=== PATIENT | female | born 1975 | race African-American/Black ===

== ENCOUNTER 2016-05-28 09:05 | Emergency (ER) | payer OTHER ==
[2016-05-28] MEDS ORDERED: ASPIRIN 81 MG CHEW TABLET As Ordered ONE (09:45)
[2016-05-28 10:20] LABS: BASO % 0.3 % (0.0-1.0); EOS # 0.2 K/mm3 (0.0-0.50); EOS % 2.2 % (0.0-3.0); LARGE UNSTAINED CELL # 0.1 K/mm3 (0.0-0.4); LARGE UNSTAINED CELL % 1.4 % (0.0-4.0); LYMPH # 2.3 K/mm3 (1.5-4.5); LYMPH % 30.3 % (24.0-44.0); MEAN CORPUSCULAR HEMOGLOBIN 30.7 pg (27.0-33.0); MEAN CORPUSCULAR HGB CONC 33.7 g/dl (32.0-36.5); MEAN CORPUSCULAR VOLUME 91.3 fl (80.0-96.0); MONO # 0.5 K/mm3 (0.0-0.8); MONO % 7.1 % (0.0-5.0); NEUTROPHILS # 4.2 K/mm3 (1.8-7.7); NEUTROPHILS % 58.8 % (36.0-66.0); PLATELET COUNT, AUTOMATED 233 k/mm3 (150-450); RED CELL DISTRIBUTION WIDTH 12.4 % (11.5-14.5); WHITE BLOOD COUNT 7.2 K/mm3 (4.0-10.0)
[2016-05-28 10:21] LABS: ANION GAP 9 MEQ/L (8-16); BLOOD UREA NITROGEN 10 MG/DL (7-18); CALCIUM LEVEL 8.7 MG/DL (8.5-10.1); CARBON DIOXIDE LEVEL 27 MEQ/L (21-32); CHLORIDE LEVEL 105 MEQ/L (98-107); CREATININE FOR GFR 0.94 MG/DL (0.55-1.02); GLOMERULAR FILTRATION RATE > 60.0 (>58); GLUCOSE, FASTING 139 MG/DL (70-105); POTASSIUM SERUM 3.9 MEQ/L (3.5-5.1); SODIUM LEVEL 141 MEQ/L (136-145)
--- NOTE | 2016-05-28 10:40 | REP ---
CHEST: Two views. There is no evidence of acute infiltrate. No pleural effusion is seen. The heart is normal in size. The mediastinal silhouette is unremarkable. The visualized osseous structures are intact. IMPRESSION: No acute pulmonary disease. Signed by Will Summers MD 05/28/2016 04:55 P
[2016-05-28] MEDS ORDERED: ISOVUE-370 76% 100ML VIAL (Q9967) As Ordered ONE (10:48)
--- NOTE | 2016-05-28 11:22 | REP ---
Duplex extremity venous ultrasound: Bilateral lower extremity. History: Chest pain, deformity and swelling. Findings: The deep veins are anechoic and fully compressible from the groin to the popliteal fossa in the right and left lower extremity. Color flow imaging is homogeneous. Spectral Doppler interrogation demonstrates intact respiratory variation in flow and normal manual augmentation of flow. There is no evidence of deep vein thrombosis. Impression: Negative bilateral lower extremity duplex venous ultrasound. No evidence of deep vein thrombosis. Signed by Karl Hamilton MD 05/28/2016 11:13 A
--- NOTE | 2016-05-28 11:45 | REP ---
CT ANGIOGRAM OF THE CHEST: TECHNIQUE: Axial contrast enhanced images from the thoracic inlet to the upper abdomen using 100 mL Isovue 370 intravenous contrast material with multiplanar reformations. The lungs are clear with no infiltrate or suspicious nodular opacities. Thoracic aorta is normal in caliber with no aneurysm or dissection. There is no evidence of pulmonary embolism. There is no evidence of adenopathy in the chest. There is no pleural or pericardial effusion. Heart is normal in size. There is a small hiatal hernia. There is a tiny cyst in the upper pole of the left kidney. The other visualized upper abdominal structures are unremarkable. IMPRESSION: No CT evidence of pulmonary embolism. Small hiatal hernia. Signed by Will Summers MD 05/28/2016 04:58 P
[2016-05-28] MEDS ORDERED: MORPHINE 4 MG/ML 1ML SYRINGE As Ordered ONE (13:00)
[2016-05-28] MEDS ORDERED: KETOROLAC 30 MG/ML VIAL (J1885) As Ordered ONE (16:14)
--- NOTE | 2016-05-28 17:54 | EDDOCDS ---
Nurse's Notes [facility] Name: Maria Esther Jimenez Age: 40 yrs Sex: Female : 1975 Arrival Date: 05/28/2016 Time: 09:05 Bed 9 Private MD: Saskia Fay, [facility] Diagnosis: Chest pain, unspecified Presentation: 05/28 09:13 Presenting complaint:. Red Flag criteria, patient assessed and taken directly to a bed. [facility] 09:16 Presenting complaint: Patient states: chest pain on and off x 1 week worse last night, kpj SOB sweaty and nauseated with chest pain today. tingling left neck and left arm. Aspirin was not taken prior to arrival. Adult Sepsis Screening: The patient does not have new or worsening altered mentation. Patient's respiratory rate is less than 22. Systolic blood pressure is greater than 100. Patient has a qSOFA score of 0- Negative Sepsis Screen. Suicide/Homicide risk assessment- the patient denies having any suicidal and/or homicidal ideations and does not present with any other emotional, behavioral or mental health complaints. Status: The patient is a dependent. Transition of care: patient was not received from another setting of care. 09:16 Acuity: CORRINE Level 2 [facility] 09:16 Method Of Arrival: Walkin/Carried/Asstd [facility] Triage Assessment: 09:20 General: Appears uncomfortable, Behavior is anxious. Pain: Location: mid-sternal area [facility] Pain currently is 10 out of 10 on a pain scale. Pain radiates to left arm. Pt Declines HIV testing. The patient is triaged at the bedside. See Assessment in Nurses Notes section of ED record. Cardiovascular: Chest pain is described as Pain is 10 out of 10 on a pain scale. quality is heaviness, stabbing, radiates to left arm(s) neck episodes are continuous began 1999 yesterday. BOAT CARPENTER: 09:20 LMP 05/15/2016 [facility] Historical: - Allergies: Aspirin (Rash); - Home Meds: 1. Synthroid 112 mcg Oral tab 1 tab once daily (Last dose: 05/28/2016 07:30) 2. multivitamin Oral tab 1 tablet daily (Last dose: 05/27/2016) 3. mirena IUD - PMHx: Hypothyroidism; Heart Murmur; - PSHx: 2surgeries right knee; surgery left knee; - Social history: Smoking status: Patient states was never smoker of tobacco. No barriers to communication noted, The patient speaks fluent Samoan. - Family history: Not pertinent. - : The pt / caregiver states he / she is not on anticoagulants. Home medication list is obtained from the patient. - Exposure Risk Screening:: None identified. Screenin:52 Screening information is obtained from the patient. Fall risk: No risks identified. jmk Assistance ADL's: requires no assistance with activities of daily living. Abuse/DV Screen: The patient / caregiver reports he/she is: not in a situation that causes fear, pain or injury. Nutritional screening: No deficits noted. Advance Directives: Currently, there is no health care proxy. home support is adequate. Assessment: 09:52 General: Appears in no apparent distress, comfortable, Behavior is cooperative. Pain: jmk Location: anterior aspect of left upper chest, mid-sternal area and left breast Pain currently is 6 out of 10 on a pain scale. Cardiovascular: Rhythm is sinus rhythm Chest pain is described as diffuse, quality is burning, is located in left anterior chest wall episodes last > 5 minutes. Respiratory: Airway is patent Respiratory effort is even, unlabored, Breath sounds are clear bilaterally. Derm: Skin is pink, warm & dry. 11:28 General: Appears in no apparent distress, comfortable, Behavior is cooperative. Pain: bcj Location: left breast and chest Pain currently is 5 out of 10 on a pain scale. Cardiovascular: Rhythm is sinus rhythm. Derm: Skin is pink, warm & dry. 14:25 General: Appears in no apparent distress, comfortable, Behavior is cooperative. Pain: bcj Denies pain. Cardiovascular: Rhythm is sinus rhythm. Derm: Skin is pink, warm & dry. 15:44 General: Appears in no apparent distress, comfortable, Behavior is cooperative. Pain: bcj Denies pain. Cardiovascular: Rhythm is sinus rhythm. Derm: Skin is pink, warm & dry. 17:51 General: Appears in no apparent distress, comfortable, Behavior is cooperative. Pain: bcj Location: chest Pain currently is 3 out of 10 on a pain scale. Cardiovascular: Rhythm is sinus rhythm Chest pain is described as mild. Derm: Skin is pink, warm & dry. Vital Signs: 09:10 BP 172 / 87; Pulse 121; Resp 20; Temp 98.4(O); Pulse Ox 98% on R/A; Weight 125.65 kg nb2 (R); Height 5 ft. 5 in. (165.10 cm) (R); Pain 10/10; 09:15 BP 150 / 92 (auto/); bcj 09:17 Pulse 104 MON; Pulse Ox 99% ; bcj 09:30 BP 152 / 94 (auto/); bcj 09:30 Pulse 100 MON; Pulse Ox 86% ; bcj 09:45 BP 155 / 94 (auto/); bcj 09:45 Pulse 96 MON; bcj 10:00 BP 157 / 84 (auto/); bcj 10:00 Pulse 88 MON; Pulse Ox 99% ; bcj 10:15 BP 152 / 77 (auto/); bcj 10:15 Pulse 112 MON; Pulse Ox 97% ; bcj 10:30 BP 134 / 74 (auto/); bcj 10:30 Pulse 100 MON; Pulse Ox 98% ; bcj 10:34 BP 133 / 69 (auto/); bcj 10:34 Pulse 96 MON; Pulse Ox 97% ; bcj 10:36 BP 133 / 69; Pulse 93; Pain 8/10; bcj 10:42 BP 124 / 72 (auto/); bcj 10:42 Pulse 96 MON; Pulse Ox 97% ; bcj 10:44 BP 124 / 74; Pulse 98; Resp 16; Pulse Ox 98% on R/A; Pain 5/10; bcj 10:45 BP 123 / 73 (auto/); bcj 10:45 Pulse 92 MON; Pulse Ox 98% ; bcj 11:00 BP 129 / 74 (auto/); bcj 11:03 Pulse 90 MON; bcj 11:15 BP 134 / 71 (auto/); bcj 11:15 Pulse 84 MON; Pulse Ox 99% ; bcj 11:29 BP 124 / 67; Pulse 87; Pain 5/10; bcj 11:30 BP 129 / 67 (auto/); bcj 11:30 Pulse 78 MON; Pulse Ox 100% ; bcj 12:06 BP 139 / 78 (auto/); bcj 12:07 Pulse 84 MON; bcj 12:57 BP 139 / 73 (auto/); bcj 12:57 Pulse 84 MON; Pulse Ox 98% ; bcj 13:57 BP 125 / 69 (auto/); [facility] 13:57 Pulse 96 MON; Pulse Ox 98% ; [facility] 17:51 BP 125 / 78; Pulse 98; Resp 16; Temp 98; Pulse Ox 96% on R/A; Pain 3/10; j 09:10 Body Mass Index 46.09 (125.65 kg, 165.10 cm) [facility] Vitals: 09:10 Log In Time: May 28, 2016 at 09:05. RN notified that patient meets Red Flag 2 criteria. 14:25 Refer to monitor trend for complete vital signs trends. [facility] ED Course: 09:08 Patient visited by Anamika Kim. nb2 09:08 Patient moved to Waiting nb2 09:11 Patient visited by Anamika Kim. nb2 09:11 Patient moved to 9 nb2 09:13 [facility] is Private Physician. nb2 09:17 No apparent distress. Resting quietly. awaiting re-evaluation by ER physician. [facility] 09:17 IV is intact. [facility] 09:18 Triage Initiated [facility] 09:21 Bhaskar Perales MD is Attending Physician. br1 09:31 EKG done. (by ED staff). Reviewed by Bhaskar Perales MD. rn1 09:35 Patient visited by Bhaskar Perales MD. br1 09:51 Basic Metabolic Profile Sent. jmk 09:51 CBC with Diff Sent. jmk 09:51 Cardiac Injury Profile Sent. jmk 09:52 No apparent distress. Resting quietly. awaiting re-evaluation by ER physician. jmk 09:52 The patient / caregiver is instructed regarding the plan of care and ED course. Patient is[place] has correct armband on for positive identification. Placed in gown. Bed in low position. Call light in reach. Side rails up X2. Adult w/ patient. industrial hygiene engineer on. Pulse ox on. NIBP on. 09:52 Troponin Sent. jmk 09:52 Inserted saline lock: 20 gauge in right antecubital area. Labs drawn. (by ED staff). breanak Sent per order to lab. 09:54 Patient visited by Peterson Brunson RN. jmk 11:04 Chest, 2 View (pa\E\lat) Returned. EDMS 11:07 [facility] [place] was scanned into [employer] and attached to record. lg 11:30 Patient visited by Fredi Latham RN. bcj 11:35 Ultrasound Bilateral LE R/O DVT Returned. EDMS 12:07 CT Chest Angio R/O PE Returned. EDMS 12:08 Patient visited by Fredi Latham RN. bcj 12:54 Patient visited by Bhaskar Perales MD. br1 14:27 Patient visited by Fredi Latham RN. bcj 15:44 No apparent distress. Resting quietly. awaiting re-evaluation by ER physician. bcj 15:44 IV is intact. bcj 15:46 Patient visited by Fredi Latham RN. bcj 16:13 Patient visited by Bhaskar Perales MD. br1 17:05 Chest, 2 View (pa\E\lat) Returned. EDMS 17:06 CT Chest Angio R/O PE Returned. EDMS 17:07 Patient visited by Bhaskar Perales MD. br1 17:17 [facility]. br1 17:17 Tin Bello is Referral Physician. br1 17:51 No apparent distress. Resting quietly. Awaiting disposition. bcj 17:51 Discontinued lock intact. No procedures done that require assistance. bcj 17:53 Patient visited by Fredi Latham RN. bcj Administered Medications: 09:48 Drug: Aspirin 324 mg [aspirin 81 mg chewable tablet (4 tabs)] Route: PO; srm 10:26 Drug: Nitrostat 0.4 mg [Nitrostat 0.4 mg sublingual tablet (1 tabs)] Route: Sublingual; bcj 10:36 Drug: Nitrostat 0.4 mg [Nitrostat 0.4 mg sublingual tablet (1 tabs)] Route: Sublingual; bcj 10:36 Follow up: BP 133 / 69; Pulse 93 bpm; Pain 8/10 Adult bcj 10:43 Drug: Nitrostat 0.4 mg [Nitrostat 0.4 mg sublingual tablet (1 tabs)] Route: Sublingual; bcj 10:44 Follow up: BP 124 / 74; Pulse 98 bpm; Resp 16 bpm; Pulse Ox 98% RA; Pain 5/10 Adult bcj 11:29 Follow up: BP 124 / 67; Pulse 87 bpm; Pain 5/10 Adult bcj 13:02 Drug: morphine 4 mg [morphine 4 mg/mL intravenous cartridge (1 mL)] Route: IVP; Site: bcj right antecubital; 14:27 Follow up: Response: Pain is decreased [facility] 16:25 Drug: ketorolac 30 mg [ketorolac 30 mg/mL (1 mL) injection solution (1 mL)] Route: IVP; [facility] Site: left antecubital; Order Results: Lab Order: Basic Metabolic Profile; SPEC'05/28/16 09:48 Test: GLUCOSE, FASTING; Value: 139; Range: 70-105; Abnormal: Above high normal; Units: MG/DL; Status: F Test: BLOOD UREA NITROGEN; Value: 10; Range: 7-18; Units: MG/DL; Status: F Test: CREATININE FOR GFR; Value: 0.94; Range: 0.55-1.02; Units: MG/DL; Status: F Test: GLOMERULAR FILTRATION RATE; Value: > 60.0; Range: >58; Status: F Test: SODIUM LEVEL; Value: 141; Range: 136-145; Units: MEQ/L; Status: F Test: POTASSIUM SERUM; Value: 3.9; Range: 3.5-5.1; Units: MEQ/L; Status: F Test: CHLORIDE LEVEL; Value: 105; Range: 98-107; Units: MEQ/L; Status: F Test: CARBON DIOXIDE LEVEL; Value: 27; Range: 21-32; Units: MEQ/L; Status: F Test: ANION GAP; Value: 9; Range: 8-16; Units: MEQ/L; Status: F Test: CALCIUM LEVEL; Value: 8.7; Range: 8.5-10.1; Units: MG/DL; Status: F Test Note: ; Units are mL/min/1.73 m2 Chronic Kidney Disease Staging per NKF: Stage I & II GFR >=60 Normal to Mildly Decreased Stage III GFR 30-59 Moderately Decreased Stage IV GFR 15-29 Severely Decreased Stage V GFR <15 Very Little GFR Left ESRD GFR <15 on TATTOO TECHNICIAN Lab Order: CBC with Diff; SPEC'05/28/16 09:48 Test: WHITE BLOOD COUNT; Value: 7.2; Range: 4.0-10.0; Units: K/mm3; Status: F Test: RED BLOOD COUNT; Value: 4.44; Range: 4.00-5.40; Units: M/mm3; Status: F Test: HEMOGLOBIN; Value: 13.6; Range: 12.0-16.0; Units: g/dl; Status: F Test: HEMATOCRIT; Value: 40.5; Range: 36.0-47.0; Units: %; Status: F Test: MEAN CORPUSCULAR VOLUME; Value: 91.3; Range: 80.0-96.0; Units: fl; Status: F Test: MEAN CORPUSCULAR HEMOGLOBIN; Value: 30.7; Range: 27.0-33.0; Units: pg; Status: F Test: MEAN CORPUSCULAR HGB CONC; Value: 33.7; Range: 32.0-36.5; Units: g/dl; Status: F Test: RED CELL DISTRIBUTION WIDTH; Value: 12.4; Range: 11.5-14.5; Units: %; Status: F Test: PLATELET COUNT, AUTOMATED; Value: 233; Range: 150-450; Units: k/mm3; Status: F Test: NEUTROPHILS %; Value: 58.8; Range: 36.0-66.0; Units: %; Status: F Test: LYMPH %; Value: 30.3; Range: 24.0-44.0; Units: %; Status: F Test: MONO %; Value: 7.1; Range: 0.0-5.0; Abnormal: Above high normal; Units: %; Status: F Test: EOS %; Value: 2.2; Range: 0.0-3.0; Units: %; Status: F Test: BASO %; Value: 0.3; Range: 0.0-1.0; Units: %; Status: F Test: LARGE UNSTAINED CELL %; Value: 1.4; Range: 0.0-4.0; Units: %; Status: F Test: NEUTROPHILS #; Value: 4.2; Range: 1.8-7.7; Units: K/mm3; Status: F Test: LYMPH #; Value: 2.3; Range: 1.5-4.5; Units: K/mm3; Status: F Test: MONO #; Value: 0.5; Range: 0.0-0.8; Units: K/mm3; Status: F Test: EOS #; Value: 0.2; Range: 0.0-0.50; Units: K/mm3; Status: F Test: BASO #; Value: 0.0; Range: 0.0-0.2; Units: K/mm3; Status: F Test: LARGE UNSTAINED CELL #; Value: 0.1; Range: 0.0-0.4; Units: K/mm3; Status: F Lab Order: Cardiac Injury Profile; [facility] 05/28/16 09:48 Test: CPK CREATINE PHOSPHOKINASE; Value: 230; Range: 26-192; Abnormal: Above high normal; Units: U/L; Status: F Test: CK-MB VALUE MASS; Value: 3.8; Range: 0.0-3.6; Abnormal: Above high normal; Units: NG/ML; Status: F Test: MB/CK RELATIVE INDEX; Value: 1.65; Range: < OR =4; Status: F Test Note: ; DIAGNOSIS CRITERIA MMB ng/ml Relative Index (RI) NON-AMI < or = 5 N/A [place]MERS [place]ONE > 5 < or = 4 AMI > 5 > 4 Lab Order: Troponin; [facility] 05/28/16 09:48 Test: TROPONIN I; Value: < 0.02; Range: < 0.10; Units: NG/ML; Status: F Test Note: ; Troponin I Reference Interval for [employer] LOCI: 99th Percentile= 0.00-0.045 ng/ml Risk Stratification: <= 0.10 ng/ml Decreased Risk for Adverse Clinical Events. 0.10-1.50 ng/ml Increased Risk for Adverse Clinical Events. Evaluation of additional criterion and/or repeat testing in 2-6 hours is suggested to rule out myocardial damage. >= 1.50 ng/ml Indicative of Myocardial Injury. Lab Order: CARDIAC MARKER PANEL; [facility] 05/28/16 15:16 Test: CPK CREATINE PHOSPHOKINASE; Value: 188; Range: 26-192; Units: U/L; Status: F Test: CK-MB VALUE MASS; Value: 3.2; Range: 0.0-3.6; Units: NG/ML; Status: F Test: MB/CK RELATIVE INDEX; Value: 1.70; Range: < OR =4; Status: F Test: TROPONIN I; Value: < 0.02; Range: < 0.10; Units: NG/ML; Status: F Test Note: ; DIAGNOSIS CRITERIA MMB ng/ml Relative Index (RI) NON-AMI < or = 5 N/A SUMMERS ZONE > 5 < or = 4 AMI > 5 > 4 Radiology Order: Chest, 2 View (pa\E\lat) Test: Chest, 2 View (pa\E\lat) REASON FOR EXAMINATION: Chest Pain; CHEST:; ; Two views.; ; There is no evidence of acute infiltrate.; ; No pleural effusion is seen.; ; The heart is normal in size.; ; The mediastinal silhouette is unremarkable.; ; The visualized osseous structures are intact.; ; IMPRESSION:; ; No acute pulmonary disease.; ; ; Signed by; Will Summers MD 05/28/2016 04:55 P; Radiology Order: Ultrasound Bilateral LE R/O DVT Test: Ultrasound Bilateral LE R/O DVT REASON FOR EXAMINATION: Deformity/Swelling; Duplex extremity venous ultrasound: Bilateral lower extremity.; ; History: Chest pain, deformity and swelling.; ; Findings: The deep veins are anechoic and fully compressible from the groin to; the popliteal fossa in the right and left lower extremity. Color flow imaging is; homogeneous. Spectral Doppler interrogation demonstrates intact respiratory; variation in flow and normal manual augmentation of flow. There is no evidence; of deep vein thrombosis.; ; Impression:; ; Negative bilateral lower extremity duplex venous ultrasound. No evidence of deep; vein thrombosis.; ; ; Signed by; Karl Hamilton MD 05/28/2016 11:13 A; Radiology Order: CT Chest Angio R/O PE Test: CT Chest Angio R/O PE REASON FOR EXAMINATION: Chest Pain; CT ANGIOGRAM OF THE CHEST:; ; TECHNIQUE: Axial contrast enhanced images from the thoracic inlet to the upper; abdomen using 100 mL Isovue 370 intravenous contrast material with multiplanar; reformations.; ; The lungs are clear with no infiltrate or suspicious nodular opacities. Thoracic; aorta is normal in caliber with no aneurysm or dissection. There is no evidence; of pulmonary embolism. There is no evidence of adenopathy in the chest. There; is no pleural or pericardial effusion. Heart is normal in size. There is a; small hiatal hernia. There is a tiny cyst in the upper pole of the left kidney.; The other visualized upper abdominal structures are unremarkable.; ; IMPRESSION:; ; No CT evidence of pulmonary embolism. Small hiatal hernia.; ; ; Signed by; Will Summers MD 05/28/2016 04:58 P; Outcome: 17:17 Discharge ordered by Provider. br1 17:51 Discharge Assessment: patient administered narcotics - yes. Pt provided with safe j discharge. The following High Risk Discharge criteria are identified: None. Discharged to home ambulatory, with family. Condition: stable. Discharge instructions given to patient, Instructed on discharge instructions, follow up and referral plans. medication usage, Prescriptions given X 1. CT Study completed. Property :Personal belongings accompany Pt. 17:54 Patient left the ED. [facility] Signatures: Dispatcher [employer] EDMS Ayla Franco RN RN Fredi Abrams RN RN Peterson CastroRN RN Misa Gore, RN RN Lata Arzate Reg Reg lg Roggie, Brian, MD MD br1 Vikram Cheung rn1 Anamika Kim2 Corrections: (The following items were deleted from the chart) 09:18 09:13 Red Flag criteria, patient assessed and taken directly to a bed. [facility] kp MTDChuck
--- NOTE | 2016-05-28 17:54 | EDDOCDS ---
Physician Documentation [facility] Name: Maria Esther Jimenez Age: 40 yrs Sex: Female : 1975 Arrival Date: 05/28/2016 Time: 09:05 Bed 9 Private MD: Family Aric Bray Disposition: 05/28/16 17:17 Discharged to Home/Self Care. Impression: Chest pain, unspecified. - Condition is Stable. - Discharge Instructions: Nonspecific Chest Pain, Chest Wall Pain. - Medication Reconciliation, Local Pharmacy Hours form. - Follow up: Family Aric Bray; When: 1 - 2 days; Reason: Recheck today's complaints. Follow up: Tin Bello; When: 4 - 5 days; Reason: Recheck today's complaints. - Problem is new. - Symptoms have improved. - Notes: You were seen in the ED for chest pain. Bloodwork along with EKG of the heart, chest Xray, CT scan of the chest and cardiac monitoring showed no acute findings. It is possible the pain is related to the wall of the chest itself. We have discussed the case with Dr. Bello of Cardiology as well who has recommended you may return home to follow up with Cardiology as well as your primary doctor for further evaluation. Please call today to make these two appointments. You may trial Ibuprofen every 6 hours as needed for pain with food as well. Return to the ED for any return or worsening of pain, trouble breathing, lightheadedness, loss of consciousness or any other concerns. Historical: - Allergies: Aspirin (Rash); - Home Meds: 1. Synthroid 112 mcg Oral tab 1 tab once daily (Last dose: 05/28/2016 07:30) 2. multivitamin Oral tab 1 tablet daily (Last dose: 05/27/2016) 3. mirena IUD - PMHx: Hypothyroidism; Heart Murmur; - PSHx: 2surgeries right knee; surgery left knee; - Social history: Smoking status: Patient states was never smoker of tobacco. No barriers to communication noted, The patient speaks fluent Lithuanian. - Family history: Not pertinent. - : The pt / caregiver states he / she is not on anticoagulants. Home medication list is obtained from the patient. - Exposure Risk Screening:: None identified. 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 5 in. (165.10 cm) (R); Pain 10/10; 09:15 BP 150 / 92 (auto/); bcj 09:17 Pulse 104 MON; Pulse Ox 99% ; bcj 09:30 BP 152 / 94 (auto/); bcj 09:30 Pulse 100 MON; Pulse Ox 86% ; bcj 09:45 BP 155 / 94 (auto/); bcj 09:45 Pulse 96 MON; bcj 10:00 BP 157 / 84 (auto/); bcj 10:00 Pulse 88 MON; Pulse Ox 99% ; bcj 10:15 BP 152 / 77 (auto/); bcj 10:15 Pulse 112 MON; Pulse Ox 97% ; bcj 10:30 BP 134 / 74 (auto/); bcj 10:30 Pulse 100 MON; Pulse Ox 98% ; bcj 10:34 BP 133 / 69 (auto/); bcj 10:34 Pulse 96 MON; Pulse Ox 97% ; bcj 10:36 BP 133 / 69; Pulse 93; Pain 8/10; bcj 10:42 BP 124 / 72 (auto/); bcj 10:42 Pulse 96 MON; Pulse Ox 97% ; bcj 10:44 BP 124 / 74; Pulse 98; Resp 16; Pulse Ox 98% on R/A; Pain 5/10; bcj 10:45 BP 123 / 73 (auto/); bcj 10:45 Pulse 92 MON; Pulse Ox 98% ; bcj 11:00 BP 129 / 74 (auto/); bcj 11:03 Pulse 90 MON; bcj 11:15 BP 134 / 71 (auto/); bcj 11:15 Pulse 84 MON; Pulse Ox 99% ; bcj 11:29 BP 124 / 67; Pulse 87; Pain 5/10; bcj 11:30 BP 129 / 67 (auto/); bcj 11:30 Pulse 78 MON; Pulse Ox 100% ; bcj 12:06 BP 139 / 78 (auto/); bcj 12:07 Pulse 84 MON; bcj 12:57 BP 139 / 73 (auto/); bcj 12:57 Pulse 84 MON; Pulse Ox 98% ; bcj 13:57 BP 125 / 69 (auto/); bcj 13:57 Pulse 96 MON; Pulse Ox 98% ; bcj 17:51 BP 125 / 78; Pulse 98; Resp 16; Temp 98; Pulse Ox 96% on R/A; Pain 3/10; bcj 09:10 Body Mass Index 46.09 (125.65 kg, 165.10 cm) nb2 MDM: 09:13 ECG WITH READING ER PHYS+CARDIAG ordered. EDMS 09:36 Education General Manager/Pulse Ox/q 30 min VS ordered. br1 09:36 IV Saline Lock ordered. br1 09:36 Rhythm Strip to chart ordered. br1 09:36 Undress patient appropriately for examination ordered. br1 09:36 Nitrostat 0.4 mg Sublingual every 5 minutes; hold if SBP<90mmHg.Document Pain Score br1 Response to Each Dose x3 ordered. 09:36 Oxygen at 2L/min via NC ordered. br1 09:37 Chest, 2 View (pa\E\lat) Ordered. EDMS 09:37 Basic Metabolic Profile Ordered. EDMS 09:37 CBC with Diff Ordered. EDMS 09:37 Cardiac Injury Profile Ordered. EDMS 09:37 Troponin Ordered. EDMS 09:38 Ultrasound Bilateral LE R/O DVT Ordered. EDMS 09:38 Aspirin 324 mg PO once ordered. br1 10:38 Basic Metabolic Profile Reviewed. br1 10:38 CBC with Diff Reviewed. br1 10:38 Cardiac Injury Profile Reviewed. br1 10:38 Troponin Reviewed. br1 10:41 Financial registration complete. lg 10:41 CT Chest Angio R/O PE Ordered. EDMS 11:07 [place] [place] was scanned into [employer] and attached to record. lg 12:47 Chest, 2 View (pa\E\lat) Reviewed. br1 12:47 Ultrasound Bilateral LE R/O DVT Reviewed. br1 12:47 CT Chest Angio R/O PE Reviewed. br1 12:49 Repeat EKG (put time details section) ordered. br1 12:49 Redraw CIP &Troponin (put time in details section) ordered. br1 12:49 Admit to ED Observation status ordered. br1 12:53 Repeat EKG (put time details section) complete. deg 12:53 Redraw CIP &Troponin (put time in details section) complete. deg 12:54 ECG WITH READING ER PHYS ordered. EDMS 12:54 CARDIAC MARKER PANEL Ordered. EDMS 12:54 morphine 4 mg IVP once ordered. br1 13:00 REGULAR+DIET ordered. EDMS 13:05 Admit to ED Observation status complete. deg 16:00 CARDIAC MARKER PANEL Reviewed. br1 16:12 ketorolac 30 mg IVP once ordered. br1 Administered Medications: 09:48 Drug: Aspirin 324 mg [aspirin 81 mg chewable tablet (4 tabs)] Route: PO; srm 10:26 Drug: Nitrostat 0.4 mg [Nitrostat 0.4 mg sublingual tablet (1 tabs)] Route: Sublingual; bcj 10:36 Drug: Nitrostat 0.4 mg [Nitrostat 0.4 mg sublingual tablet (1 tabs)] Route: Sublingual; bcj 10:36 Follow up: BP 133 / 69; Pulse 93 bpm; Pain 8/10 Adult bcj 10:43 Drug: Nitrostat 0.4 mg [Nitrostat 0.4 mg sublingual tablet (1 tabs)] Route: Sublingual; bcj 10:44 Follow up: BP 124 / 74; Pulse 98 bpm; Resp 16 bpm; Pulse Ox 98% RA; Pain 5/10 Adult bcj 11:29 Follow up: BP 124 / 67; Pulse 87 bpm; Pain 5/10 Adult bcj 13:02 Drug: morphine 4 mg [morphine 4 mg/mL intravenous cartridge (1 mL)] Route: IVP; Site: bcj right antecubital; 14:27 Follow up: Response: Pain is decreased bcj 16:25 Drug: ketorolac 30 mg [ketorolac 30 mg/mL (1 mL) injection solution (1 mL)] Route: IVP; j Site: left antecubital; Signatures: Dispatcher [employer] Gabrielle Alva, Franchise Development Manager Unit deg Ayla Franco RN RN kpj Johnson, Bruce, RN RN bcj Knapp, Jean,RN RN Lata Krishnamurthy, Mina Reg Bhaskar Crews MD MD br1 Misa Smith RN srm The chart was reviewed and I authenticate all verbal orders and agree with the evaluation and treatment provided.Attachments: 11:07 [place] [place] Agreement lg MTDD
--- NOTE | 2016-05-30 09:38 | ECGEPIP ---
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
--- NOTE | 2016-05-30 09:56 | ECGEPIP ---
Stationary ECG Study [facility] - ED Test Date: 2016-05-28 Pat Name: JACKELYN IBANEZ Department: Room: - Gender: F Educational Aid: rn : 1975 Requested By: MANDEEP Carlos Order Number: [id number] Reading MD: Tutu Farley Measurements Intervals [place] Rate: 91 P: 59 [place]: 158 QRS: 59 QRSD: 83 T: 16 QT: 359 QTc: 443 Interpretive Statements SINUS RHYTHM Electronically Signed On 05-30-2016 9:56:08 EST by Tutu Farley
--- NOTE | 2016-05-30 18:54 | EDDOCDS ---
Physician Documentation [facility] Name: Maria Esther Jimenez Age: 40 yrs Sex: Female : 1975 Arrival Date: 05/28/2016 Time: 09:05 Bed 9 Private MD: Family Aric Bray Disposition: 05/28/16 17:17 Discharged to Home/Self Care. Impression: Chest pain, unspecified. - Condition is Stable. - Discharge Instructions: Nonspecific Chest Pain, Chest Wall Pain. - Medication Reconciliation, Local Pharmacy Hours form. - Follow up: Family Aric Bray; When: 1 - 2 days; Reason: Recheck today's complaints. Follow up: Tin Bello; When: 4 - 5 days; Reason: Recheck today's complaints. - Problem is new. - Symptoms have improved. - Notes: You were seen in the ED for chest pain. Bloodwork along with EKG of the heart, chest Xray, CT scan of the chest and cardiac monitoring showed no acute findings. It is possible the pain is related to the wall of the chest itself. We have discussed the case with Dr. Bello of Cardiology as well who has recommended you may return home to follow up with Cardiology as well as your primary doctor for further evaluation. Please call today to make these two appointments. You may trial Ibuprofen every 6 hours as needed for pain with food as well. Return to the ED for any return or worsening of pain, trouble breathing, lightheadedness, loss of consciousness or any other concerns. Historical: - Allergies: Aspirin (Rash); - Home Meds: 1. Synthroid 112 mcg Oral tab 1 tab once daily (Last dose: 05/28/2016 07:30) 2. multivitamin Oral tab 1 tablet daily (Last dose: 05/27/2016) 3. mirena IUD - PMHx: Hypothyroidism; Heart Murmur; - PSHx: 2surgeries right knee; surgery left knee; - Social history: Smoking status: Patient states was never smoker of tobacco. No barriers to communication noted, The patient speaks fluent Turkish. - Family history: Not pertinent. - : The pt / caregiver states he / she is not on anticoagulants. Home medication list is obtained from the patient. - Exposure Risk Screening:: None identified. 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 5 in. (165.10 cm) (R); Pain 10/10; 09:15 BP 150 / 92 (auto/); bcj 09:17 Pulse 104 MON; Pulse Ox 99% ; bcj 09:30 BP 152 / 94 (auto/); bcj 09:30 Pulse 100 MON; Pulse Ox 86% ; bcj 09:45 BP 155 / 94 (auto/); bcj 09:45 Pulse 96 MON; bcj 10:00 BP 157 / 84 (auto/); bcj 10:00 Pulse 88 MON; Pulse Ox 99% ; bcj 10:15 BP 152 / 77 (auto/); bcj 10:15 Pulse 112 MON; Pulse Ox 97% ; bcj 10:30 BP 134 / 74 (auto/); bcj 10:30 Pulse 100 MON; Pulse Ox 98% ; bcj 10:34 BP 133 / 69 (auto/); bcj 10:34 Pulse 96 MON; Pulse Ox 97% ; bcj 10:36 BP 133 / 69; Pulse 93; Pain 8/10; bcj 10:42 BP 124 / 72 (auto/); bcj 10:42 Pulse 96 MON; Pulse Ox 97% ; bcj 10:44 BP 124 / 74; Pulse 98; Resp 16; Pulse Ox 98% on R/A; Pain 5/10; bcj 10:45 BP 123 / 73 (auto/); bcj 10:45 Pulse 92 MON; Pulse Ox 98% ; bcj 11:00 BP 129 / 74 (auto/); bcj 11:03 Pulse 90 MON; bcj 11:15 BP 134 / 71 (auto/); bcj 11:15 Pulse 84 MON; Pulse Ox 99% ; bcj 11:29 BP 124 / 67; Pulse 87; Pain 5/10; bcj 11:30 BP 129 / 67 (auto/); bcj 11:30 Pulse 78 MON; Pulse Ox 100% ; bcj 12:06 BP 139 / 78 (auto/); bcj 12:07 Pulse 84 MON; bcj 12:57 BP 139 / 73 (auto/); bcj 12:57 Pulse 84 MON; Pulse Ox 98% ; bcj 13:57 BP 125 / 69 (auto/); bcj 13:57 Pulse 96 MON; Pulse Ox 98% ; bcj 17:51 BP 125 / 78; Pulse 98; Resp 16; Temp 98; Pulse Ox 96% on R/A; Pain 3/10; bcj 09:10 Body Mass Index 46.09 (125.65 kg, 165.10 cm) nb2 MDM: 09:13 ECG WITH READING ER PHYS+CARDIAG ordered. EDMS 09:36 Data Entry Associate/Pulse Ox/q 30 min VS ordered. br1 09:36 IV Saline Lock ordered. br1 09:36 Rhythm Strip to chart ordered. br1 09:36 Undress patient appropriately for examination ordered. br1 09:36 Nitrostat 0.4 mg Sublingual every 5 minutes; hold if SBP<90mmHg.Document Pain Score br1 Response to Each Dose x3 ordered. 09:36 Oxygen at 2L/min via NC ordered. br1 09:37 Chest, 2 View (pa\E\lat) Ordered. EDMS 09:37 Basic Metabolic Profile Ordered. EDMS 09:37 CBC with Diff Ordered. EDMS 09:37 Cardiac Injury Profile Ordered. EDMS 09:37 Troponin Ordered. EDMS 09:38 Ultrasound Bilateral LE R/O DVT Ordered. EDMS 09:38 Aspirin 324 mg PO once ordered. br1 10:38 Basic Metabolic Profile Reviewed. br1 10:38 CBC with Diff Reviewed. br1 10:38 Cardiac Injury Profile Reviewed. br1 10:38 Troponin Reviewed. br1 10:41 Financial registration complete. lg 10:41 CT Chest Angio R/O PE Ordered. EDMS 11:07 [place] [place] Payment Agreement was scanned into [employer] and attached to record. lg 12:47 Chest, 2 View (pa\E\lat) Reviewed. br1 12:47 Ultrasound Bilateral LE R/O DVT Reviewed. br1 12:47 CT Chest Angio R/O PE Reviewed. br1 12:49 Repeat EKG (put time details section) ordered. br1 12:49 Redraw CIP &Troponin (put time in details section) ordered. br1 12:49 Admit to ED Observation status ordered. br1 12:53 Repeat EKG (put time details section) complete. deg 12:53 Redraw CIP &Troponin (put time in details section) complete. deg 12:54 ECG WITH READING ER PHYS ordered. EDMS 12:54 CARDIAC MARKER PANEL Ordered. EDMS 12:54 morphine 4 mg IVP once ordered. br1 13:00 REGULAR+DIET ordered. EDMS 13:05 Admit to ED Observation status complete. deg 16:00 CARDIAC MARKER PANEL Reviewed. br1 16:12 ketorolac 30 mg IVP once ordered. br1 Administered Medications: 09:48 Drug: Aspirin 324 mg [aspirin 81 mg chewable tablet (4 tabs)] Route: PO; srm 10:26 Drug: Nitrostat 0.4 mg [Nitrostat 0.4 mg sublingual tablet (1 tabs)] Route: Sublingual; bcj 10:36 Drug: Nitrostat 0.4 mg [Nitrostat 0.4 mg sublingual tablet (1 tabs)] Route: Sublingual; bcj 10:36 Follow up: BP 133 / 69; Pulse 93 bpm; Pain 8/10 Adult bcj 10:43 Drug: Nitrostat 0.4 mg [Nitrostat 0.4 mg sublingual tablet (1 tabs)] Route: Sublingual; bcj 10:44 Follow up: BP 124 / 74; Pulse 98 bpm; Resp 16 bpm; Pulse Ox 98% RA; Pain 5/10 Adult bcj 11:29 Follow up: BP 124 / 67; Pulse 87 bpm; Pain 5/10 Adult bcj 13:02 Drug: morphine 4 mg [morphine 4 mg/mL intravenous cartridge (1 mL)] Route: IVP; Site: bcj right antecubital; 14:27 Follow up: Response: Pain is decreased bcj 16:25 Drug: ketorolac 30 mg [ketorolac 30 mg/mL (1 mL) injection solution (1 mL)] Route: IVP; j Site: left antecubital; Signatures: Dispatcher [employer] Gabrielle Alva, Clay Transporter Unit deg Ayla Franco RN RN kpj Johnson, Bruce, RN RN bcj Knapp, Jean,RN RN Lata Krishnamurthy, Mina Reg Bhaskar Crews MD MD br1 Misa Smith RN srm The chart was reviewed and I authenticate all verbal orders and agree with the evaluation and treatment provided.Attachments: 11:07 [facility] [place] Payment Agreement lg Chart Complete MTDD
--- NOTE | 2016-05-30 18:54 | EDDOCDS ---
Nurse's Notes [employer] Name: Maria Esther Jimenez Age: 40 yrs Sex: Female : 1975 Arrival Date: 05/28/2016 Time: 09:05 Bed 9 Private MD: Saskia Fay, [facility] Diagnosis: Chest pain, unspecified Presentation: 05/28 09:13 Presenting complaint:. Red Flag criteria, patient assessed and taken directly to a bed. [facility] 09:16 Presenting complaint: Patient states: chest pain on and off x 1 week worse last night, kpj SOB sweaty and nauseated with chest pain today. tingling left neck and left arm. Aspirin was not taken prior to arrival. Adult Sepsis Screening: The patient does not have new or worsening altered mentation. Patient's respiratory rate is less than 22. Systolic blood pressure is greater than 100. Patient has a qSOFA score of 0- Negative Sepsis Screen. Suicide/Homicide risk assessment- the patient denies having any suicidal and/or homicidal ideations and does not present with any other emotional, behavioral or mental health complaints. Status: The patient is a dependent. Transition of care: patient was not received from another setting of care. 09:16 Acuity: CORRINE Level 2 [facility] 09:16 Method Of Arrival: Walkin/Carried/Asstd [facility] Triage Assessment: 09:20 General: Appears uncomfortable, Behavior is anxious. Pain: Location: mid-sternal area [facility] Pain currently is 10 out of 10 on a pain scale. Pain radiates to left arm. Pt Declines HIV testing. The patient is triaged at the bedside. See Assessment in Nurses Notes section of ED record. Cardiovascular: Chest pain is described as Pain is 10 out of 10 on a pain scale. quality is heaviness, stabbing, radiates to left arm(s) neck episodes are continuous began 1999 yesterday. EXTRUSION FORMER: 09:20 LMP 05/15/2016 [facility] Historical: - Allergies: Aspirin (Rash); - Home Meds: 1. Synthroid 112 mcg Oral tab 1 tab once daily (Last dose: 05/28/2016 07:30) 2. multivitamin Oral tab 1 tablet daily (Last dose: 05/27/2016) 3. mirena IUD - PMHx: Hypothyroidism; Heart Murmur; - PSHx: 2surgeries right knee; surgery left knee; - Social history: Smoking status: Patient states was never smoker of tobacco. No barriers to communication noted, The patient speaks fluent [place]. - Family history: Not pertinent. - : The pt / caregiver states he / she is not on anticoagulants. Home medication list is obtained from the patient. - Exposure Risk Screening:: None identified. Screenin:52 Screening information is obtained from the patient. Fall risk: No risks identified. jmk Assistance ADL's: requires no assistance with activities of daily living. Abuse/DV Screen: The patient / caregiver reports he/she is: not in a situation that causes fear, pain or injury. Nutritional screening: No deficits noted. Advance Directives: Currently, there is no health care proxy. home support is adequate. Assessment: 09:52 General: Appears in no apparent distress, comfortable, Behavior is cooperative. Pain: jmk Location: anterior aspect of left upper chest, mid-sternal area and left breast Pain currently is 6 out of 10 on a pain scale. Cardiovascular: Rhythm is sinus rhythm Chest pain is described as diffuse, quality is burning, is located in left anterior chest wall episodes last > 5 minutes. Respiratory: Airway is patent Respiratory effort is even, unlabored, Breath sounds are clear bilaterally. Derm: Skin is pink, warm & dry. 11:28 General: Appears in no apparent distress, comfortable, Behavior is cooperative. Pain: bcj Location: left breast and chest Pain currently is 5 out of 10 on a pain scale. Cardiovascular: Rhythm is sinus rhythm. Derm: Skin is pink, warm & dry. 14:25 General: Appears in no apparent distress, comfortable, Behavior is cooperative. Pain: bcj Denies pain. Cardiovascular: Rhythm is sinus rhythm. Derm: Skin is pink, warm & dry. 15:44 General: Appears in no apparent distress, comfortable, Behavior is cooperative. Pain: bcj Denies pain. Cardiovascular: Rhythm is sinus rhythm. Derm: Skin is pink, warm & dry. 17:51 General: Appears in no apparent distress, comfortable, Behavior is cooperative. Pain: bcj Location: chest Pain currently is 3 out of 10 on a pain scale. Cardiovascular: Rhythm is sinus rhythm Chest pain is described as mild. Derm: Skin is pink, warm & dry. Vital Signs: 09:10 BP 172 / 87; Pulse 121; Resp 20; Temp 98.4(O); Pulse Ox 98% on R/A; Weight 125.65 kg nb2 (R); Height 5 ft. 5 in. (165.10 cm) (R); Pain 10/10; 09:15 BP 150 / 92 (auto/); bcj 09:17 Pulse 104 MON; Pulse Ox 99% ; bcj 09:30 BP 152 / 94 (auto/); bcj 09:30 Pulse 100 MON; Pulse Ox 86% ; bcj 09:45 BP 155 / 94 (auto/); bcj 09:45 Pulse 96 MON; bcj 10:00 BP 157 / 84 (auto/); bcj 10:00 Pulse 88 MON; Pulse Ox 99% ; bcj 10:15 BP 152 / 77 (auto/); bcj 10:15 Pulse 112 MON; Pulse Ox 97% ; bcj 10:30 BP 134 / 74 (auto/); bcj 10:30 Pulse 100 MON; Pulse Ox 98% ; bcj 10:34 BP 133 / 69 (auto/); bcj 10:34 Pulse 96 MON; Pulse Ox 97% ; bcj 10:36 BP 133 / 69; Pulse 93; Pain 8/10; bcj 10:42 BP 124 / 72 (auto/); bcj 10:42 Pulse 96 MON; Pulse Ox 97% ; bcj 10:44 BP 124 / 74; Pulse 98; Resp 16; Pulse Ox 98% on R/A; Pain 5/10; bcj 10:45 BP 123 / 73 (auto/); bcj 10:45 Pulse 92 MON; Pulse Ox 98% ; bcj 11:00 BP 129 / 74 (auto/); bcj 11:03 Pulse 90 MON; bcj 11:15 BP 134 / 71 (auto/); bcj 11:15 Pulse 84 MON; Pulse Ox 99% ; bcj 11:29 BP 124 / 67; Pulse 87; Pain 5/10; bcj 11:30 BP 129 / 67 (auto/); bcj 11:30 Pulse 78 MON; Pulse Ox 100% ; bcj 12:06 BP 139 / 78 (auto/); bcj 12:07 Pulse 84 MON; bcj 12:57 BP 139 / 73 (auto/); bcj 12:57 Pulse 84 MON; Pulse Ox 98% ; bcj 13:57 BP 125 / 69 (auto/); [facility] 13:57 Pulse 96 MON; Pulse Ox 98% ; [facility] 17:51 BP 125 / 78; Pulse 98; Resp 16; Temp 98; Pulse Ox 96% on R/A; Pain 3/10; j 09:10 Body Mass Index 46.09 (125.65 kg, 165.10 cm) [facility] Vitals: 09:10 Log In Time: May 28, 2016 at 09:05. RN notified that patient meets Red Flag 2 criteria. 14:25 Refer to monitor trend for complete vital signs trends. [facility] ED Course: 09:08 Patient visited by Anamika Kim. nb2 09:08 Patient moved to Waiting nb2 09:11 Patient visited by Anamika Kim. nb2 09:11 Patient moved to 9 nb2 09:13 [facility] is Private Physician. nb2 09:17 No apparent distress. Resting quietly. awaiting re-evaluation by ER physician. [facility] 09:[address] [facility] 09:18 Triage Initiated [facility] 09:21 Mandeep Perales MD is Attending Physician. br1 09:31 EKG done. (by ED staff). Reviewed by Mandeep Perales MD. rn1 09:35 Patient visited by Mandeep Perales MD. br1 09:51 Basic Metabolic Profile Sent. jmk 09:51 CBC with Diff Sent. jmk 09:51 Cardiac Injury Profile Sent. jmk 09:52 No apparent distress. Resting quietly. awaiting re-evaluation by ER physician. jmk 09:52 The patient / caregiver is instructed regarding the plan of care and ED course. Patient is[place] has correct armband on for positive identification. Placed in gown. Bed in low position. Call light in reach. Side rails up X2. Adult w/ patient. monitoring manager on. Pulse ox on. NIBP on. 09:52 Troponin Sent. jmk 09:52 Inserted saline lock: 20 gauge in right antecubital area. Labs drawn. (by ED staff). [place] Sent per order to lab. 09:54 Patient visited by Peterson Brunson RN. jmk 11:04 Chest, 2 View (pa\E\lat) Returned. EDMS 11:07 [facility] Payment Agreement was scanned into [employer] and attached to record. lg 11:30 Patient visited by Fredi Latham RN. bcj 11:35 Ultrasound Bilateral LE R/O DVT Returned. EDMS 12:07 CT Chest Angio R/O PE Returned. EDMS 12:08 Patient visited by Fredi Latham RN. bcj 12:54 Patient visited by Mandeep Perales MD. br1 14:27 Patient visited by Fredi Latham RN. bcj 15:44 No apparent distress. Resting quietly. awaiting re-evaluation by ER physician. bcj 15:44 IV is intact. bcj 15:46 Patient visited by Fredi Latham RN. bcj 16:13 Patient visited by Mandeep Perales MD. br1 17:05 Chest, 2 View (pa\E\lat) Returned. EDMS 17:06 CT Chest Angio R/O PE Returned. EDMS 17:07 Patient visited by Mandeep Perales MD. br1 17:17 [facility]. br1 17:17 Tin Bello is Referral Physician. br1 17:51 No apparent distress. Resting quietly. Awaiting disposition. bcj 17:51 Discontinued lock intact. No procedures done that require assistance. bcj 17:53 Patient visited by Fredi Latham RN. bcj 05/30 10:05 EKG-ADULT Returned. EDMS 10:05 ECG WITH READING ER PHYS Returned. EDMS Administered Medications: 05/28 09:48 Drug: Aspirin 324 mg [aspirin 81 mg chewable tablet (4 tabs)] Route: PO; srm 10:26 Drug: Nitrostat 0.4 mg [Nitrostat 0.4 mg sublingual tablet (1 tabs)] Route: Sublingual; bcj 10:36 Drug: Nitrostat 0.4 mg [Nitrostat 0.4 mg sublingual tablet (1 tabs)] Route: Sublingual; bcj 10:36 Follow up: BP 133 / 69; Pulse 93 bpm; Pain 8/10 Adult bcj 10:43 Drug: Nitrostat 0.4 mg [Nitrostat 0.4 mg sublingual tablet (1 tabs)] Route: Sublingual; bcj 10:44 Follow up: BP 124 / 74; Pulse 98 bpm; Resp 16 bpm; Pulse Ox 98% RA; Pain 5/10 Adult bcj 11:29 Follow up: BP 124 / 67; Pulse 87 bpm; Pain 5/[address] [facility] 13:02 Drug: morphine 4 mg [morphine 4 mg/mL intravenous cartridge (1 mL)] Route: IVP; Site: j right antecubital; 14:27 Follow up: Response: Pain is decreased [facility] 16:25 Drug: ketorolac 30 mg [ketorolac 30 mg/mL (1 mL) injection solution (1 mL)] Route: IVP; [facility] Site: left antecubital; Order Results: Lab Order: Basic Metabolic Profile; SPEC'M 05/28/16 09:48 Test: GLUCOSE, FASTING; Value: 139; Range: 70-105; Abnormal: Above high normal; Units: MG/DL; Status: F Test: BLOOD UREA NITROGEN; Value: 10; Range: 7-18; Units: MG/DL; Status: F Test: CREATININE FOR GFR; Value: 0.94; Range: 0.55-1.02; Units: MG/DL; Status: F Test: GLOMERULAR FILTRATION RATE; Value: > 60.0; Range: >58; Status: F Test: SODIUM LEVEL; Value: 141; Range: 136-145; Units: MEQ/L; Status: F Test: POTASSIUM SERUM; Value: 3.9; Range: 3.5-5.1; Units: MEQ/L; Status: F Test: CHLORIDE LEVEL; Value: 105; Range: 98-107; Units: MEQ/L; Status: F Test: CARBON DIOXIDE LEVEL; Value: 27; Range: 21-32; Units: MEQ/L; Status: F Test: ANION GAP; Value: 9; Range: 8-16; Units: MEQ/L; Status: F Test: CALCIUM LEVEL; Value: 8.7; Range: 8.5-10.1; Units: MG/DL; Status: F Test Note: ; Units are mL/min/1.73 m2 Chronic Kidney Disease Staging per NKF: Stage I & II GFR >=60 Normal to Mildly Decreased Stage III GFR 30-59 Moderately Decreased Stage IV GFR 15-29 Severely Decreased Stage V GFR <15 Very Little GFR Left ESRD GFR <15 on TEXTURE ARTIST Lab Order: CBC with Diff; SPEC'M 05/28/16 09:48 Test: WHITE BLOOD COUNT; Value: 7.2; Range: 4.0-10.0; Units: K/mm3; Status: F Test: RED BLOOD COUNT; Value: 4.44; Range: 4.00-5.40; Units: M/mm3; Status: F Test: HEMOGLOBIN; Value: 13.6; Range: 12.0-16.0; Units: g/dl; Status: F Test: HEMATOCRIT; Value: 40.5; Range: 36.0-47.0; Units: %; Status: F Test: MEAN CORPUSCULAR VOLUME; Value: 91.3; Range: 80.0-96.0; Units: fl; Status: F Test: MEAN CORPUSCULAR HEMOGLOBIN; Value: 30.7; Range: 27.0-33.0; Units: pg; Status: F Test: MEAN CORPUSCULAR HGB CONC; Value: 33.7; Range: 32.0-36.5; Units: g/dl; Status: F Test: RED CELL DISTRIBUTION WIDTH; Value: 12.4; Range: 11.5-14.5; Units: %; Status: F Test: PLATELET COUNT, AUTOMATED; Value: 233; Range: 150-450; Units: k/mm3; Status: F Test: NEUTROPHILS %; Value: 58.8; Range: 36.0-66.0; Units: %; Status: F Test: LYMPH %; Value: 30.3; Range: 24.0-44.0; Units: %; Status: F Test: MONO %; Value: 7.1; Range: 0.0-5.0; Abnormal: Above high normal; Units: %; Status: F Test: EOS %; Value: 2.2; Range: 0.0-3.0; Units: %; Status: F Test: BASO %; Value: 0.3; Range: 0.0-1.0; Units: %; Status: F Test: LARGE UNSTAINED CELL %; Value: 1.4; Range: 0.0-4.0; Units: %; Status: F Test: NEUTROPHILS #; Value: 4.2; Range: 1.8-7.7; Units: K/mm3; Status: F Test: LYMPH #; Value: 2.3; Range: 1.5-4.5; Units: K/mm3; Status: F Test: MONO #; Value: 0.5; Range: 0.0-0.8; Units: K/mm3; Status: F Test: EOS #; Value: 0.2; Range: 0.0-0.50; Units: K/mm3; Status: F Test: BASO #; Value: 0.0; Range: 0.0-0.2; Units: K/mm3; Status: F Test: LARGE UNSTAINED CELL #; Value: 0.1; Range: 0.0-0.4; Units: K/mm3; Status: F Lab Order: Cardiac Injury Profile; [facility] 05/28/16 09:48 Test: CPK CREATINE PHOSPHOKINASE; Value: 230; Range: 26-192; Abnormal: Above high normal; Units: U/L; Status: F Test: CK-MB VALUE MASS; Value: 3.8; Range: 0.0-3.6; Abnormal: Above high normal; Units: NG/ML; Status: F Test: MB/CK RELATIVE INDEX; Value: 1.65; Range: < OR =4; Status: F Test Note: ; DIAGNOSIS CRITERIA MMB ng/ml Relative Index (RI) NON-AMI < or = 5 N/A [place]ONE > 5 < or = 4 AMI > 5 > 4 Lab Order: Troponin; [facility] 05/28/16 09:48 Test: TROPONIN I; Value: < 0.02; Range: < 0.10; Units: NG/ML; Status: F Test Note: ; Troponin I Reference Interval for [place] LOCI: 99th Percentile= 0.00-0.045 ng/ml Risk Stratification: <= 0.10 ng/ml Decreased Risk for Adverse Clinical Events. 0.10-1.50 ng/ml Increased Risk for Adverse Clinical Events. Evaluation of additional criterion and/or repeat testing in 2-6 hours is suggested to rule out myocardial damage. >= 1.50 ng/ml Indicative of Myocardial Injury. Lab Order: CARDIAC MARKER PANEL; [facility] 05/28/16 15:16 Test: CPK CREATINE PHOSPHOKINASE; Value: 188; Range: 26-192; Units: U/L; Status: F Test: CK-MB VALUE MASS; Value: 3.2; Range: 0.0-3.6; Units: NG/ML; Status: F Test: MB/CK RELATIVE INDEX; Value: 1.70; Range: < OR =4; Status: F Test: TROPONIN I; Value: < 0.02; Range: < 0.10; Units: NG/ML; Status: F Test Note: ; DIAGNOSIS CRITERIA MMB ng/ml Relative Index (RI) NON-AMI < or = 5 N/A [place]ONE > 5 < or = 4 AMI > 5 > 4 Radiology Order: EKG-ADULT Test: EKG-ADULT REASON FOR EXAMINATION: Chest Pain; Stationary ECG Study; [facility] - ED; ; Test Date: 2016-05-28; Pat Name: MARIA ESTHER JIMENEZ Department:; Room: -; Gender: F 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 Collections Specialist: rn; : 1975 Requested By: MANDEEP Carlos; Order Number: [id number] Reading MD: Tutu Farley; Measurements; Intervals [place]; Rate: 102 P: 57; MN: 165 QRS: 42; QRSD: 83 T: 9; QT: 344; QTc: 448; Interpretive Statements; SINUS TACHYCARDIA; NONSPECIFIC T WAVE ABNIRMALITY; SIMILAR TO 04/03/15; Electronically Signed On 05-30-2016 9:38:28 EST by Tutu Farley; Radiology Order: Chest, 2 View (pa\E\lat) Test: Chest, 2 View (pa\E\lat) REASON FOR EXAMINATION: Chest Pain; CHEST:; ; Two views.; ; There is no evidence of acute infiltrate.; ; No pleural effusion is seen.; ; The heart is normal in size.; ; The mediastinal silhouette is unremarkable.; ; The visualized osseous structures are intact.; ; IMPRESSION:; ; No acute pulmonary disease.; ; ; Signed by; Will Summers MD 05/28/2016 04:55 P; Radiology Order: Ultrasound Bilateral LE R/O DVT Test: Ultrasound Bilateral LE R/O DVT REASON FOR EXAMINATION: Deformity/Swelling; Duplex extremity venous ultrasound: Bilateral lower extremity.; ; History: Chest pain, deformity and swelling.; ; Findings: The deep veins are anechoic and fully compressible from the groin to; the popliteal fossa in the right and left lower extremity. Color flow imaging is; homogeneous. Spectral Doppler interrogation demonstrates intact respiratory; variation in flow and normal manual augmentation of flow. There is no evidence; of deep vein thrombosis.; ; Impression:; ; Negative bilateral lower extremity duplex venous ultrasound. No evidence of deep; vein thrombosis.; ; ; Signed by; Karl Hamilton MD 05/28/2016 11:13 A; Radiology Order: CT Chest Angio R/O PE Test: CT Chest Angio R/O PE REASON FOR EXAMINATION: Chest Pain; CT ANGIOGRAM OF THE CHEST:; ; TECHNIQUE: Axial contrast enhanced images from the thoracic inlet to the upper; abdomen using 100 mL Isovue 370 intravenous contrast material with multiplanar; reformations.; ; The lungs are clear with no infiltrate or suspicious nodular opacities. Thoracic; aorta is normal in caliber with no aneurysm or dissection. There is no evidence; of pulmonary embolism. There is no evidence of adenopathy in the chest. There; is no pleural or pericardial effusion. Heart is normal in size. There is a; small hiatal hernia. There is a tiny cyst in the upper pole of the left kidney.; The other visualized upper abdominal structures are unremarkable.; ; IMPRESSION:; ; No CT evidence of pulmonary embolism. Small hiatal hernia.; ; ; Signed by; Will Summers MD 05/28/2016 04:58 P; Radiology Order: ECG WITH READING ER PHYS Test: ECG WITH READING ER PHYS REASON FOR EXAMINATION: CHEST PAIN; Stationary ECG Study; [facility] - ED; ; Test Date: 2016-05-28; Pat Name: MARIA ESTHER JIMENEZ Department:; Room: -; Gender: F Credit Collections Specialist: rn; : 1975 Requested By: MANDEEP Carlos; Order Number: [id number] Reading MD: Tutu Farley; Measurements; Intervals [place]; Rate: 91 P: 59; MN: 158 QRS: 59; QRSD: 83 T: 16; QT: 359; QTc: 443; Interpretive Statements; SINUS RHYTHM; ; Electronically Signed On 05-30-2016 9:56:08 EST by Tutu Farley; Outcome: 17:17 Discharge ordered by Provider. br1 17:51 Discharge Assessment: patient administered narcotics - yes. Pt provided with safe bcj discharge. The following High Risk Discharge criteria are identified: None. Discharged to home ambulatory, with family. Condition: stable. Discharge instructions given to patient, Instructed on discharge instructions, follow up and referral plans. medication usage, Prescriptions given X 1. CT Study completed. Property :Personal belongings accompany Pt. 17:[address] the [address] [facility] Signatures: Dispatcher [employer] EDAyla Molina RN RN Fredi Abrams, RN RN Peterson Castro,RN RN Misa Gore, RN RN Lata Arzate, Reg Reg lg Mandeep Perales MD MD br1 Vikram Cheung rn1 Anamika Kim2 Corrections: (The following items were deleted from the chart) 09:18 09:13 Red Flag criteria, patient assessed and taken directly to a bed. [facility] Chart Complete MTDD
--- NOTE | 2016-05-30 18:54 | EDDOCDS ---
Physician Documentation [facility] Name: Maria Esther Jimenez Age: 40 yrs Sex: Female : 1975 Arrival Date: 05/28/2016 Time: 09:05 Bed 9 Private MD: Family Aric Bray Disposition: 05/28/16 17:17 Discharged to Home/Self Care. Impression: Chest pain, unspecified. - Condition is Stable. - Discharge Instructions: Nonspecific Chest Pain, Chest Wall Pain. - Medication Reconciliation, Local Pharmacy Hours form. - Follow up: Family Aric Bray; When: 1 - 2 days; Reason: Recheck today's complaints. Follow up: Tin Bello; When: 4 - 5 days; Reason: Recheck today's complaints. - Problem is new. - Symptoms have improved. - Notes: You were seen in the ED for chest pain. Bloodwork along with EKG of the heart, chest Xray, CT scan of the chest and cardiac monitoring showed no acute findings. It is possible the pain is related to the wall of the chest itself. We have discussed the case with Dr. Bello of Cardiology as well who has recommended you may return home to follow up with Cardiology as well as your primary doctor for further evaluation. Please call today to make these two appointments. You may trial Ibuprofen every 6 hours as needed for pain with food as well. Return to the ED for any return or worsening of pain, trouble breathing, lightheadedness, loss of consciousness or any other concerns. Historical: - Allergies: Aspirin (Rash); - Home Meds: 1. Synthroid 112 mcg Oral tab 1 tab once daily (Last dose: 05/28/2016 07:30) 2. multivitamin Oral tab 1 tablet daily (Last dose: 05/27/2016) 3. mirena IUD - PMHx: Hypothyroidism; Heart Murmur; - PSHx: 2surgeries right knee; surgery left knee; - Social history: Smoking status: Patient states was never smoker of tobacco. No barriers to communication noted, The patient speaks fluent Luxembourg[place]. - Family history: Not pertinent. - : The pt / caregiver states he / she is not on anticoagulants. Home medication list is obtained from the patient. - Exposure Risk Screening:: None identified. ASSISTANT TO THE VICE PRESIDENT: 05/28 09:20 LMP 05/15/2016 [facility] Vital Signs: 09:10 BP 172 / 87; Pulse 121; Resp 20; Temp 98.4(O); Pulse Ox 98% on R/A; Weight 125.65 kg / nb2 277.01 lbs (R); Height 5 ft. 5 in. (165.10 cm) (R); Pain 10/10; 09:15 BP 150 / 92 (auto/); bcj 09:17 Pulse 104 MON; Pulse Ox 99% ; bcj 09:30 BP 152 / 94 (auto/); bcj 09:30 Pulse 100 MON; Pulse Ox 86% ; bcj 09:45 BP 155 / 94 (auto/); bcj 09:45 Pulse 96 MON; bcj 10:00 BP 157 / 84 (auto/); bcj 10:00 Pulse 88 MON; Pulse Ox 99% ; bcj 10:15 BP 152 / 77 (auto/); bcj 10:15 Pulse 112 MON; Pulse Ox 97% ; bcj 10:30 BP 134 / 74 (auto/); bcj 10:30 Pulse 100 MON; Pulse Ox 98% ; bcj 10:34 BP 133 / 69 (auto/); bcj 10:34 Pulse 96 MON; Pulse Ox 97% ; bcj 10:36 BP 133 / 69; Pulse 93; Pain 8/10; bcj 10:42 BP 124 / 72 (auto/); bcj 10:42 Pulse 96 MON; Pulse Ox 97% ; bcj 10:44 BP 124 / 74; Pulse 98; Resp 16; Pulse Ox 98% on R/A; Pain 5/10; bcj 10:45 BP 123 / 73 (auto/); bcj 10:45 Pulse 92 MON; Pulse Ox 98% ; bcj 11:00 BP 129 / 74 (auto/); bcj 11:03 Pulse 90 MON; bcj 11:15 BP 134 / 71 (auto/); bcj 11:15 Pulse 84 MON; Pulse Ox 99% ; bcj 11:29 BP 124 / 67; Pulse 87; Pain 5/10; bcj 11:30 BP 129 / 67 (auto/); bcj 11:30 Pulse 78 MON; Pulse Ox 100% ; bcj 12:06 BP 139 / 78 (auto/); bcj 12:07 Pulse 84 MON; bcj 12:57 BP 139 / 73 (auto/); bcj 12:57 Pulse 84 MON; Pulse Ox 98% ; bcj 13:57 BP 125 / 69 (auto/); bcj 13:57 Pulse 96 MON; Pulse Ox 98% ; bcj 17:51 BP 125 / 78; Pulse 98; Resp 16; Temp 98; Pulse Ox 96% on R/A; Pain 3/10; bcj 09:10 Body Mass Index 46.09 (125.65 kg, 165.10 cm) nb2 MDM: 09:13 ECG WITH READING ER PHYS+CARDIAG ordered. EDMS 09:36 Counseling Psychologist/Pulse Ox/q 30 min VS ordered. br1 09:36 IV Saline Lock ordered. br1 09:36 Rhythm Strip to chart ordered. br1 09:36 Undress patient appropriately for examination ordered. br1 09:36 Nitrostat 0.4 mg Sublingual every 5 minutes; hold if SBP<90mmHg.Document Pain Score br1 Response to Each Dose x3 ordered. 09:36 Oxygen at 2L/min via NC ordered. br1 09:37 Chest, 2 View (pa\E\lat) Ordered. EDMS 09:37 Basic Metabolic Profile Ordered. EDMS 09:37 CBC with Diff Ordered. EDMS 09:37 Cardiac Injury Profile Ordered. EDMS 09:37 Troponin Ordered. EDMS 09:38 Ultrasound Bilateral LE R/O DVT Ordered. EDMS 09:38 Aspirin 324 mg PO once ordered. br1 10:38 Basic Metabolic Profile Reviewed. br1 10:38 CBC with Diff Reviewed. br1 10:38 Cardiac Injury Profile Reviewed. br1 10:38 Troponin Reviewed. br1 10:41 Financial registration complete. lg 10:41 CT Chest Angio R/O PE Ordered. EDMS 11:07 [facility] [place] Agreement was scanned into [email or web address] and attached to record. lg 12:47 Chest, 2 View (pa\E\lat) Reviewed. br1 12:47 Ultrasound Bilateral LE R/O DVT Reviewed. br1 12:47 CT Chest Angio R/O PE Reviewed. br1 12:49 Repeat EKG (put time details section) ordered. br1 12:49 Redraw CIP &Troponin (put time in details section) ordered. br1 12:49 Admit to ED Observation status ordered. br1 12:53 Repeat EKG (put time details section) complete. deg 12:53 Redraw CIP &Troponin (put time in details section) complete. deg 12:54 ECG WITH READING ER PHYS ordered. EDMS 12:54 CARDIAC MARKER PANEL Ordered. EDMS 12:54 morphine 4 mg IVP once ordered. br1 13:00 REGULAR+DIET ordered. EDMS 13:05 Admit to ED Observation status complete. deg 16:00 CARDIAC MARKER PANEL Reviewed. br1 16:12 ketorolac 30 mg IVP once ordered. br1 Administered Medications: 09:48 Drug: Aspirin 324 mg [aspirin 81 mg chewable tablet (4 tabs)] Route: PO; srm 10:26 Drug: Nitrostat 0.4 mg [Nitrostat 0.4 mg sublingual tablet (1 tabs)] Route: Sublingual; bcj 10:36 Drug: Nitrostat 0.4 mg [Nitrostat 0.4 mg sublingual tablet (1 tabs)] Route: Sublingual; bcj 10:36 Follow up: BP 133 / 69; Pulse 93 bpm; Pain 8/10 Adult bcj 10:43 Drug: Nitrostat 0.4 mg [Nitrostat 0.4 mg sublingual tablet (1 tabs)] Route: Sublingual; bcj 10:44 Follow up: BP 124 / 74; Pulse 98 bpm; Resp 16 bpm; Pulse Ox 98% RA; Pain 5/10 Adult bcj 11:29 Follow up: BP 124 / 67; Pulse 87 bpm; Pain 5/10 Adult bcj 13:02 Drug: morphine 4 mg [morphine 4 mg/mL intravenous cartridge (1 mL)] Route: IVP; Site: bcj right antecubital; 14:27 Follow up: Response: Pain is decreased bcj 16:25 Drug: ketorolac 30 mg [ketorolac 30 mg/mL (1 mL) injection solution (1 mL)] Route: IVP; j Site: left antecubital; Signatures: Dispatcher [employer] Gabrielle Alva, Research Professional Unit deg Ayla Franco RN RN kpj Johnson, Bruce, RN RN bcj Knapp, Jean,RN RN Lata Krishnamurthy, Mnia Reg Bhaskar Crews MD MD br1 Misa Smith RN srm The chart was reviewed and I authenticate all verbal orders and agree with the evaluation and treatment provided.Attachments: 11:07 [facility] [place] Agreement lg Chart Complete MTDD
== END 2016-05-28 17:54 | disposition home or self-care (01) ==
LOC: M ED 09:05
DX: R07.9 Chest pain, unspecified (principal); E03.9 Hypothyroidism, unspecified; R01.1 Cardiac murmur, unspecified; Z79.899 Other long term (current) drug therapy; Z88.6 Allergy status to analgesic agent
CPT/HCPCS: 36415; 71020; 71275; 80048; 82550; 82553; 85025; 93005; 93041; 93970; 96374; 96375; 99285; J1885; Q9967

== ENCOUNTER → 2016-12-07 | Outpatient (CLI) | payer OTHER ==
--- NOTE | 2016-12-07 12:44 | REPMRS ---
Patient History The patient states she has not had a clinical breast exam in over a year. Family history of prostate cancer in father at age 61. Taking hormonal contraceptives for 4 years. Digital Mammo Screening Bilat: December 07, 2016 - Exam #: [id number] Bilateral CC and MLO view(s) were taken. Technologist: Ami Ordonez Technologist Prior study comparison: October 25, 2015, digital bilateral screening mammo, performed at [facility]. January 06, 2013, digital bilateral screening mammo, performed at [facility]. FINDINGS: The breast tissue is almost entirely fat. There has been no change in the appearance of the mammogram from the prior studies. There is no interval development of dominant mass, architectural distortion, or clustered microcalcification typical of malignancy. ASSESSMENT: BI-RADS/ACR category 1 mammogram. Negative. Recommendation Routine screening mammogram of both breasts in 1 year (for women over age 40). This mammogram was interpreted with the aid of an FDA-approved computer-aided dectection system. Electronically Signed By: Adalid Hamilton MD 12/07/16 [id number]
== END ==
LOC: M RAD 11:18
PROVIDERS: ATTEND Physician Assistant Medical
DX: Z12.31 Encounter for screening mammogram for malignant neoplasm of breast (principal)